=== PATIENT | female | born 2000 | race African-American/Black ===

== ENCOUNTER 2024-11-17 07:35 | Emergency (ER) | payer OTHER ==
[~2024-11-17] VITALS: Ht 167.6 cm; Wt 82.0 kg
[2024-11-17 09:29] VITALS: BP 110/70; TEMP 97.9; O2SAT 99
== END 2024-11-17 09:33 | disposition home or self-care (01) ==
LOC: M ED 07:35
DX: J09.X2 Influenza due to identified novel influenza A virus with other respiratory manifestations (principal)

== ENCOUNTER 2025-04-01 08:07 | Emergency (ER) | payer OTHER ==
[~2025-04-01] VITALS: Ht 167.6 cm; Wt 91.0 kg
[~2025-04-01 08:07] MED LIST: CEPH500C PO; IBUP200C25 PO
[2025-04-01 10:29] LABS: BASO % 0.1 % (0.0-1.0); EOS % 0.2 % (0.0-3.0); HEMOGLOBIN 11.8 g/dl (12.0-15.5); LYMPH # 1.6 10^3/uL (1.5-5.0); LYMPH % 11.2 % (24.0-44.0); MEAN CORPUSCULAR HGB CONC 33.7 g/dl (32.0-36.5); MEAN CORPUSCULAR VOLUME 94.9 fl (80.0-96.0); MONO # 1.5 10^3/uL (0.0-0.8); MONO % 10.3 % (2.0-8.0); NEUTROPHILS # 11.1 10^3/uL (1.5-8.5); NEUTROPHILS % 77.8 % (36.0-66.0); PLATELET COUNT, AUTOMATED 217 10^3/uL (150-450); RED BLOOD COUNT 3.69 10^6/uL (4.00-5.40); WHITE BLOOD COUNT 14.2 10^3/uL (4.0-10.0)
[2025-04-01 10:39] LABS: ERYTHROCYTE SEDIMENTATION RATE 105 mm/hr (0-20)
[2025-04-01] MEDS ORDERED: ISOVUE-370 76% 100 ML VIAL As Ordered ONE (10:43)
[2025-04-01] MEDS: KETOROLAC 30 MG/ML 1 ML VIAL IV ONE (10:50)
[2025-04-01] MEDS: LIDOCAINE 2% W/EPINEPHrine 20 ML VIAL **PRES FREE INJ ONE (12:25)
[2025-04-01] MEDS: LORazepam 2 MG/ML 1 ML VIAL IV ONE (12:56)
[2025-04-01 13:37] VITALS: BP 122/76
[2025-04-01] MEDS ORDERED: OXYC1TAB23 PO (13:41)
[2025-04-01 13:52] VITALS: O2SAT 68
[2025-04-01 14:09] VITALS: TEMP 98.7
== END 2025-04-01 14:10 | disposition home or self-care (01) ==
LOC: M ED 08:07
DX: L05.01 Pilonidal cyst with abscess (principal); F12.10 Cannabis abuse, uncomplicated; Z79.1 Long term (current) use of non-steroidal anti-inflammatories (NSAID); Z79.2 Long term (current) use of antibiotics; Z79.899 Other long term (current) drug therapy
CPT/HCPCS: 10060; 72193; 80047; 85025; 85652; 86140; 87070; 87076; 87205; 96374; 96375; 99284; J1885; J2060; Q9967

== ENCOUNTER 2025-06-19 11:17 | Emergency (ER) | payer BC, OTHER ==
[~2025-06-19] VITALS: Ht 167.6 cm; Wt 90.0 kg
[~2025-06-19 11:17] MED LIST changes: +OXYC1TAB23 PO
[2025-06-19] MEDS ORDERED: TYLE650T38 PO (11:36)
[2025-06-19] MEDS: MORPHINE 4 MG/ML 1 ML VIAL IV ONE ×2 (13:05→15:42)
[2025-06-19 13:15] LABS: KETONE, URINE AUTO RFX TRACE mg/dL (NEGATIVE); LEUKOCYTE ESTERASE UR AUTO RFX NEGATIVE (NEGATIVE); MUCUS, URINE RFX SMALL (NEGATIVE); NITRITE, URINE AUTO RFX NEGATIVE (NEGATIVE); RBC, URINE AUTO RFX 12 /HPF (0-3); SQUAM EPITHELIAL CELL UR AURFX 3 /HPF (0-6); WBC, URINE AUTO RFX 5 /HPF (0-3)
[2025-06-19 13:17] LABS: BASO # 0.0 10^3/uL (0.0-0.2); BASO % 0.2 % (0.0-1.0); EOS # 0.0 10^3/uL (0.0-0.5); EOS % 0.1 % (0.0-3.0); LYMPH # 1.6 10^3/uL (1.5-5.0); LYMPH % 9.3 % (24.0-44.0); MONO # 1.5 10^3/uL (0.0-0.8); MONO % 8.8 % (2.0-8.0); NEUTROPHILS # 14.2 10^3/uL (1.5-8.5); NEUTROPHILS % 81.0 % (36.0-66.0); PLATELET COUNT, AUTOMATED 238 10^3/uL (150-450)
[2025-06-19 13:24] LABS: ERYTHROCYTE SEDIMENTATION RATE 94 mm/hr (0-20)
[2025-06-19 13:46] LABS: C REACTIVE PROTEIN QUANTITATIV 6.70 MG/DL (<1.0)
[2025-06-19 13:47] LABS: CALCIUM LEVEL 9.3 MG/DL (8.5-10.1); CARBON DIOXIDE LEVEL 27 MMOL/L (20-31); CHLORIDE LEVEL 103 MMOL/L (98-107); CREATININE FOR GFR 0.61 MG/DL (0.55-1.30); GLOMERULAR FILTRATION RATE > 90.0 (>60); POTASSIUM SERUM 3.5 MMOL/L (3.5-5.1); SODIUM LEVEL 140 MMOL/L (136-145)
[2025-06-19] MEDS: PERCOCET 5MG/325MG TAB PO ONE (14:15)
[2025-06-19] MEDS ORDERED: ISOVUE-370 76% 100 ML VIAL As Ordered ONE (14:36)
[2025-06-19] MEDS ORDERED: FLUID PLACE HOLDER IV ONE (15:15)
[2025-06-19] MEDS ORDERED: VANCOMYCIN HCL IV ONE (15:15)
[2025-06-19] MEDS ORDERED: VANCOMYCIN HCL 2,000 MG, VIAL MATE ADAPTER 1 EACH in NS 500 ML IV ONE (15:25)
[2025-06-19] MEDS ORDERED: HOME MED LIST COMPLETE! XX SCH (15:30)
[2025-06-19] MEDS: PIPERACILLIN/TAZOBACTAM SOD 3.375 GM in DEXTROSE 5% (D5W) ADV/MINI-BAG 50 ML IV ONE (15:39)
[2025-06-19] MEDS: NS (Normal Saline) 0.9% 1,000 ML IV ONE (15:40)
[2025-06-19] MEDS: LIDOCAINE 2% MDV 20 ML VIAL SC ONE (15:43)
[2025-06-19] MEDS: VANCOMYCIN HCL 2,000 MG, VIAL MATE ADAPTER 1 EACH in NS 500 ML IV ONE (16:40)
[2025-06-19] MEDS ORDERED: CEPH500C PO (16:46)
[2025-06-19 18:50] VITALS: BP 113/50; TEMP 99.1; O2SAT 99
[2025-06-19] MEDS: diphenhydrAMINE 50 MG/ML VIAL IV ONE (18:57)
== END 2025-06-19 19:10 | disposition home or self-care (01) ==
LOC: M ED 11:17
DX: L05.02 Pilonidal sinus with abscess (principal); F12.10 Cannabis abuse, uncomplicated
CPT/HCPCS: 10060; 74177; 80048; 81001; 83605; 84145; 85025; 85652; 86140; 87040; 87070; 87205; 96365; 96366; 96367; 96375; 96376; 99284; J1200; J2543; J3374; Q9967